=== PATIENT | female | born 1980 | race Caucasian/White ===

== ENCOUNTER → 2021-05-21 08:47 | Outpatient (CLI) | payer BC, SELFPAY ==
--- NOTE | ~2021-05-21 | XR_ITS ---
EXAMINATION: XR_[id number]_CR DATE: 05/21/2021 09:13 INDICATION: Pleurodynia. TECHNIQUE: A frontal view of the chest and 2 views on 3 radiographs of the right ribs were obtained. COMPARISON: None. FINDINGS: The chest demonstrates clear lungs without pneumonia, pleural effusion, or pneumothorax. Th e heart size is normal. There is a fracture of right fifth rib. There is an old healed fracture of ri ght fourth rib. 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 IMPRESSION: 1. Acute fracture of right fifth rib. Reviewed, dictated and finalized at location A.
== END ==
PROVIDERS: PCP Family Medicine Adolescent Medicine; Visit Provider Physician Assistant
DX: S22.31XA Fracture of one rib, right side, initial encounter for closed fracture (principal); X58.XXXA Exposure to other specified factors, initial encounter
CPT/HCPCS: 71101

== ENCOUNTER → 2021-06-25 09:19 | Outpatient (CLI) | payer BC, SELFPAY ==
--- NOTE | ~2021-06-25 | XR_ITS ---
EXAMINATION: XR_[id number]_CR INDICATION: Right-sided rib pain, recent rib fracture TECHNIQUE: A frontal view of the chest and 3 views of the right ribs were obtained. COMPARISON: 05/21/2021 FINDINGS: There is a healing fracture of the right fifth rib. An old healed right fourth rib fracture is noted. There is an old fracture of the distal right clavicle with nonunion. The lungs are free of acute opacities. There is no pleural effusion or pneumothorax. The cardiomediastinal silhouette is n ormal. IMPRESSION: 1. No acute cardiopulmonary abnormality or acute rib fracture identified. 2. Healing fracture of the right fifth rib, healed fracture of the right fourth rib, and right distal clavicle fracture with nonunion. Reviewed, dictated and finalized at location A.
== END ==
PROVIDERS: PCP Physician Assistant; Visit Provider Physician Assistant
DX: S22.31XD Fracture of one rib, right side, subsequent encounter for fracture with routine healing (principal); X58.XXXD Exposure to other specified factors, subsequent encounter
CPT/HCPCS: 71101

== ENCOUNTER 2021-07-02 08:04 | Emergency (ER) | payer BC, SELFPAY ==
--- NOTE | ~2021-07-02 | XR_ITS ---
EXAMINATION: XR ribs RT 2V INDICATION: Right rib pain TECHNIQUE: 3 views of the right ribs were obtained. COMPARISON: 06/25/2021 FINDINGS: There is a healed fracture of the right fourth rib. There is a transverse fracture of the r ight fifth rib. The distal fracture fragment remains inferiorly displaced by approximately one cortic al width. Minimal periosteal reaction has developed. There is also a minimally displaced right sixth rib fracture not seen on the prior examinations. There is an old fracture of the distal right clavicl e with nonunion. The visualized portions of the lungs are clear. There is no right pleural effusion o r pneumothorax. The cardiomediastinal silhouette is normal. IMPRESSION: 1. Healed fracture of the right fourth rib, displaced right fifth rib fracture with minimal interval healing, and minimally displaced right sixth rib fracture not seen on the comparison examinations. 2. 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 Reviewed, dictated and finalized at location A.
[2021-07-02 08:20] VITALS: BP 147/90; PULSE 100; RESP 18; TEMP 36.5; O2SAT 98
[2021-07-02] MEDS: MORPHINE SULFATE (*CRX) 4 MG/ML INJ IV PUSH (09:07)
[2021-07-02 09:08] VITALS: BP 137/93; PULSE 84; RESP 19; O2SAT 97
--- NOTE | 2021-07-02 09:08 | PC.NURSE ---
Administering pain medications to pt. Pt in a shared room and over hears dr tell pt in the next room that they have covid. Pt becomes angry and yells are you fucking kidding me . Dr atkinson comes over to speak with pt and tells her about her rib fractures and pt asking what can we do explains that their is not a lot that can be done for rib fractures and she would just need to take prescribed medications and rest. Pt states So there is nothing we can do, and he has fucking covid! pt then rips mask off of her face. advises pt to put mask back on. Dr atkinson leaves room and pt stating lets go, im ready to go!
--- NOTE | 2021-07-02 09:22 | ED.GENADULT ---
HPI - General Adult General Chief complaint: Unspecified Stated complaint: split rib x 1 month Time Seen by Provider: 07/02/21 08:26 History of Present Illness HPI narrative: Patient is a 40-year-old female who presents ER with chest wall pain. Patient had sudden onset pain at 1:30 AM. She reports she was diagnosed with a broken rib in the last month. She has been trying to heal. Had sudden worsening of pain tonight. Denies trauma. Reports has had some cough no fevers or chills. She is having no difficulty with breathing but pain with breathing so she takes shallower breaths. Reports she was referred here by her primary care office. Patient is holding her right chest wall and attempt to be more comfortable. Related Data Home Medications Medication Instructions Recorded Confirmed melatonin 10 mg tablet 10 mg PO QHS 04/22/21 05/21/21 multivitamin 1 tablet PO DAILY 04/22/21 05/21/21 cyclobenzaprine 10 mg tablet 10 mg PO BID PRN tablet 05/21/21 05/21/21 prednisone 20 mg tablet 40 mg PO . for 5 days tablet 05/21/21 05/21/21 Allergies Allergy/AdvReac Type Severity Reaction Status Date / Time amoxicillin [From Augmentin] AdvReac Severe diarrhea Verified 05/21/21 07:44 clavulanic acid AdvReac Severe diarrhea Verified 05/21/21 07:44 [From Augmentin] Review of Systems Review of Systems: All systems reviewed & are unremarkable except as noted in HPI and below Constitutional: Constitutional: Reports chills and Reports fever(s) Cardiovascular: Cardiovascular: Denies radiating jaw, neck or arm pain and Reports other (Chest wall pain) Respiratory: Respiratory: Reports cough, Denies dyspnea and Reports other (Difficulty taking a deep breath 2/2 pain.) [facility] Past Medical History Medical History delivery delivered x3 Right clavicle fracture Surgical History Surgical History History of partial hysterectomy 2016 (or 2017) Hx of neck surgery 2002 Family History Family History Father Diabetes mellitus Hypertension Heart disease Mother Melanoma Social History Social History Smoking packs per day: 1 Smoking cigarettes per day: 20.0 Years smoked: 15 Smoking pack-years: 15.00 Smoking status: Current every day smoker Tobacco type: cigarettes Second hand tobacco smoke exposure: Yes Alcohol intake: current Alcohol use details: Wine socially Substance use: never Substance use type: does not use Gender identity (if verbalized by the patient): Female Sexual Orientation (if Verbalized by the Patient): Straight or Heterosexual Spiritual care concerns: No Agree to blood products: Yes Exam Narrative: GENERAL: Uncomfortable-appearing, well-nourished, and crying. HEAD: Normocephalic, atraumatic. CHEST: Clear to auscultation. No respiratory distress. Right sided chest wall pain inferior to the breast, no brusing/crepitus HEART: Regular rate and rhythm. Normal peripheral pulses. EXTREMITIES: Normal range of motion. No edema. SKIN: Warm, dry, no rash. NEURO: Alert and oriented x3. PSYCH: Normal mood and affect. Course Course Emergency Course: Patient walked out of the ER after receiving her results. She is very upset that she had an additional rib fracture. She had just received her morphine and her significant other was with her. Boyfriend requested an emergency nerve block, discussed that this is not a procedure performed through the ER. I have contacted the patient's PCP and updated her on the situation. They report that they are planning on doing another outpatient CT and she has a follow-up appointment with cardiothoracic surgery next week. Vital Signs Vital signs: Vital Signs Temperature 97.7 F 07/02/21 08:20 Pulse Rate 100 07/02/21
--- NOTE | 2021-07-02 09:31 | PC.NURSE ---
Real Estate Specialist student notifies this RN that pt walked out. student able to remove pt IV prior to her leaving.
== END 2021-07-02 09:34 | disposition home or self-care (01) ==
PROVIDERS: Emergency Provider Emergency Medicine; PCP Physician Assistant
DX: S22.41XD Multiple fractures of ribs, right side, subsequent encounter for fracture with routine healing (principal); F17.210 Nicotine dependence, cigarettes, uncomplicated; X58.XXXD Exposure to other specified factors, subsequent encounter
CPT/HCPCS: 71100; 96374; 99284; J2270

== ENCOUNTER 2021-07-04 13:26 | Outpatient (CLI) | payer BC, SELFPAY ==
--- NOTE | ~2021-07-04 | CT_ITS ---
EXAMINATION:CT diagnostic chest wo con DATE: 07/04/2021 13:47 INDICATION: Fracture of one rib, right side, initial encounter. Right chest pain. TECHNIQUE: Computed tomography (CT) of the chest was performed without intravenous contrast. Automate d exposure control and iterative reconstruction technique were employed. The dose-length product (DLP ) was 304.95 mGy-cm. COMPARISON: Right rib radiographs 07/02/2021 FINDINGS: There is mild emphysema. There is mild atelectasis bilaterally. No pleural effusion. The he art size is normal. There are coronary artery calcifications. No pericardial effusion. There is a 2 m m stone in right kidney. There is a 2 mm stone in left kidney. There is an old fracture deformity of distal right clavicle. There is a healing fracture of right fifth rib with callus formation. There is an acute fracture right sixth rib. There is an old healed fracture of right fourth rib. IMPRESSION: 1. Acute fracture of right sixth rib. 2. Healing subacute fracture of right fifth rib. 3. Mild emphysema. Reviewed, dictated and finalized at location A.
== END 2021-07-04 13:27 ==
PROVIDERS: PCP Physician Assistant; Visit Provider Physician Assistant
DX: J43.9 Emphysema, unspecified (principal); S22.41XD Multiple fractures of ribs, right side, subsequent encounter for fracture with routine healing; X58.XXXD Exposure to other specified factors, subsequent encounter
CPT/HCPCS: 71250

== ENCOUNTER → 2023-02-24 12:06 | Outpatient (CLI) | payer BC, SELFPAY ==
--- NOTE | ~2023-02-24 | XR_ITS ---
XR chest 2V DATE: 02/24/2023 12:53 INDICATION: Cough. Left anterior chest wall pain. TECHNIQUE: 2 views COMPARISON: 07/04/2021 CT chest FINDINGS: Minimal residual deformity is evident from prior lateral right fifth and sixth rib fracture s noted on 07/04/2021 CT thorax examination. Normal heart size. No hilar or mediastinal enlargement. No pulmonary infiltrate or consolidation, ple ural effusion or pulmonary vascular congestion or pneumothorax is detected. IMPRESSION: No active cardiopulmonary disease Reviewed, dictated and finalized at location L. [facility]
--- NOTE | ~2023-02-24 | XR_ITS ---
XR ribs LT 2V DATE: 02/24/2023 12:53 INDICATION: Cough. Left anterior chest wall pain. TECHNIQUE: 3 views of left ribs COMPARISON: None FINDINGS: No left rib fracture or bone destruction is detected. The left lung is clear. No pleural effusion or pulmonary vascular congestion or pneumothorax is noted on the left. Normal heart size. IMPRESSION: Negative left ribs Reviewed, dictated and finalized at location L. [employer] IMPRESSION: Negative left ribs
== END ==
PROVIDERS: PCP Family Medicine Adolescent Medicine; Visit Provider Family Medicine Adolescent Medicine
DX: R05.9 Cough, unspecified (principal); R07.89 Other chest pain
CPT/HCPCS: 71046; 71100

== ENCOUNTER 2023-03-25 08:35 | Day surgery (SDC) | payer OTHER, SELFPAY ==
[2023-03-09 12:14] VITALS: BMI 23.8
[2023-03-25] VITALS (8 sets, daily range): BP systolic 102–163; BP diastolic 65–93; PULSE 62–77; RESP 14–24; TEMP 36.3–36.9; O2SAT 97–100; BMI 24.7
[2023-03-25] MEDS: LACTATED RINGERS 1,000 ML 30 ML IV CONT ×2 (09:21→11:46)
--- NOTE | 2023-03-25 10:06 | SUR.PREOP ---
FEMALE RN IN ROOM WHILE DR BARROS MARKED PT. SPOUSE AT BEDSIDE
--- NOTE | 2023-03-25 10:10 | P.OP_ITS ---
Procedure Note - Detailed Date of Procedure 03/25/23 Pre-op Diagnosis Micromastia Post-op Diagnosis Same Procedure Performed Bilateral augmentation mammaplasty Surgeon Clark Hastings MD Anesthesia General Findings Bilateral Garland Banegas SoftTouch 520 cc Right - REF# [id number] SN [id number] Dual plane 2 Left - REF# [id number] SN [id number] Dual plane 2 Description of Procedure She is here today for bilateral breast augmentation. Previously and again today the risks, benefits, alternatives were discussed in extensive detail. I wanted her to be very realistic about the risks involved as well as expectations. We discussed aftercare and what to monitor for. Made sure answered all of her questions to her satisfaction today and consent was obtained. Marked in the preoperative holding area with their verification. The patient was taken to the operating room placed supine on the operating table. Anesthesia was provided by anesthesiology. A surgical time-out was taken. We cleansed the skin and 1% lidocaine and 0.25% Marcaine with epinephrine was used anesthetize as a field block. She was prepped and draped in a standard sterile fashion. Tegaderm nipple Liu were placed. A 15 blade used to make an incision along the inframammary fold. Dissection was continued at 45 degree angle until the chest wall as identified. I incised the pectoralis major along its inferior border and completely released the inferior border leaving the medial border intact. I created a subpectoral pocket in the appropriate dimensions based on our preoperative planning for the implant. I then copiously irrigated with saline solution and verified a strict hemosta sis. Next the use a triple antibiotic and Betadine containing solution to irrigate the pocket. I washed my gloves with the triple antibiotic and Betadine solution. We washed the implant immediately upon opening it with this solution and only opened it when we needed it. I used implant funnel and no-touch technique. The implant was introduced into the pocket using the funnel. Having verified p ositioning of the implant this was closed using 2-0 PDS followed by 3-0 Monocryl in a running subcuticular 4-0 Monocryl followed by tissue glue. Fluffs and surgical bra were placed. Patient was awoke and taken to PACU without difficulty. All instrument sponge counts were correct at the end of the case. Estimated Blood Loss 25 Drains No Packing No Pathology None sent Complications No immediate complications Condition Stable Disposition PACU
--- NOTE | 2023-03-25 10:10 | WPDHPUPDATE1 ---
History and Physical Update Update Date/Time: 03/25/23 10:10 History and Physical has been reviewed, including an updated exam of the patient. There are NO changes in the patient's condition. Risks, benefits, and alternatives have been discussed and questions answered. Patient agrees to proceed with procedure.
[2023-03-25] MEDS: TRANEXAMIC ACID 1,000 MG/10 ML AMPUL 1000 MG IV PUSH (10:31)
[2023-03-25] MEDS: ceFAZolin SODIUM 2 GM/20 ML SW SYRINGE IV PUSH (10:32)
[2023-03-25] MEDS: LIDO 1%/EPINEPHRINE 1:100,000 20 ML VIAL 30 ML INFILTRATE (10:43)
[2023-03-25] MEDS: NACL 0.9% IRRIG POUR BOTTLE 900 ML, GENTAMICIN SULFATE INJ 160 MG, ceFAZolin 2 GM, POVI... IRRIGATION (11:03)
[2023-03-25] MEDS: HYDROmorphone HCL INJ (*CRX) 1 MG/ML SYR 0.5 MG IV PUSH ×4 (12:03→12:32)
--- NOTE | 2023-03-25 12:13 | SUR.PHASEI ---
PT RESTING QUIETLY NOW, AWAKENS EASILY. NO LONGER MOANING OR GRIMACING IN PAIN. RESP EVEN UNLABORED. PT P,W,Felipe.
--- NOTE | 2023-03-25 12:35 | SUR.PHASEI ---
PT AWAKE, EATING ICE CHIPS. STATES PAIN 5-6/10. PT STATES READY TO SEE SPOUSE.
[2023-03-25] MEDS: oxyCODONE HCL (*CRX) 5 MG TAB IR PO (12:49)
--- NOTE | 2023-03-25 13:39 | SUR.PHASEII ---
1240; UPON ARRIVAL TO [facility], SPOUSE IN ROOM. PT STATES SHE IS READY TO GO HOME. 1255; PT EATING AND DRINKING. TALKATIVE. ASKING AGAIN TO GO HOME. SPOUSE REMAINS AT BEDSIDE.
--- NOTE | 2023-04-06 07:25 | WPDANESPN ---
Anes - Prog Note Post-Op Date/Time: 04/06/23 07:25 Cardiovascular status: normal Respiratory status: normal Airway patency: baseline Mental status: baseline Post-Op hydration status: normal Vital Signs: Last Vital Signs Temp 36.4 C 03/25/23 11:55 Pulse 70 03/25/23 13:00 Resp 16 03/25/23 13:00 BP 156/84 H 03/25/23 13:00 Pulse Ox 100 03/25/23 13:00 O2 Del Method Room Air 03/25/23 13:00 O2 Flow Rate 6 03/25/23 12:10 Pain Score (VAS): 2 Patient Feedback: Patient satisfied with anesthetic care. Other Findings: late entry
--- NOTE | 2023-04-16 07:31 | WPDANESEPPF ---
Anes - Initial Pre Proc Eval Procedure: Operation Date: 03/25/23 10:45 Proposed Procedures p Bilateral Breast Augmentation Mammoplasty - Clark Hastings MD Date/Time: 04/16/23 07:31 Surgeon: Clark Hastings MD Pre Op Diagnosis: Micromastia Patient Data Age: 42 Gender: F Height: 1.63 m Weight: 65.5 kg Last Vital Signs Temp 36.4 C 03/25/23 11:55 Pulse 70 03/25/23 13:00 Resp 16 03/25/23 13:00 BP 156/84 H 03/25/23 13:00 Pulse Ox 100 03/25/23 13:00 O2 Del Method Room Air 03/25/23 13:00 O2 Flow Rate 6 03/25/23 12:10 Allergies Allergy/AdvReac Type Severity Reaction Status Date / Time No Known Allergies Allergy Verified 03/25/23 08:51 Home Medications Medication Instructions Recorded Confirmed Type alprazolam 1 mg tablet 1 mg PO QHS PRN anxiety #30 tabs 12/30/22 03/25/23 Rx escitalopram oxalate 10 mg tablet 10 mg PO DAILY #30 tabs 12/30/22 03/25/23 Rx lisinopril 40 mg tablet 40 mg PO DAILY #30 tabs 12/30/22 03/25/23 Rx albuterol sulfate 90 mcg/actuation 2 inh inhalation Q4H PRN shortness 02/10/23 03/25/23 Rx aerosol inhaler of breath or wheezing #8.5 grams hydrochlorothiazide 25 mg tablet 25 mg PO DAILY #30 tabs 04/06/23 Rx polyethylene glycol 3350 17 17 g PO DAILY #238 grams 04/06/23 Rx gram/dose oral powder (Miralax) Patient hx anesthesia problems: none Family hx anesthesia problems: none Results Review: All pre-operative results and documents have been reviewed as part of the pre-operative evaluation. [facility] Past Medical History Medical History delivery delivered x3 Cutaneous abscess of groin Right clavicle fracture Right rib fracture Surgical History Surgical History History of partial hysterectomy 2015 (or 2017) Hx of neck surgery 2002 Family History Family History Father Diabetes mellitus Hypertension Heart disease Mother Melanoma Social History Social History Smoking packs per day: 1 Smoking cigarettes per day: 20.0 Years smoked: 15 Smoking pack-years: 15.00 Smoking status: Current every day smoker Tobacco type: cigarettes Second hand tobacco smoke exposure: Yes Alcohol intake: current Alcohol use details: Wine socially Substance use: never Substance use type: does not use Living arrangements: with family Occupation/Education: occupation Gender identity (if verbalized by the patient): Female Sexual Orientation (if Verbalized by the Patient): Straight or Heterosexual Spiritual care concerns: No Agree to blood products: Yes Comments late entry Anes - Eval Final PreProcedure Day of Procedure 04/16/23 07:31 Patient weight: normal Heart: regular rate and rhythm Lungs: clear to auscultation Airway: Mallampati scale class II Neurological: alert and oriented Last oral intake: >/= 8 hours ASA classification: II Emergent: no Anesthetic plan: proceed Anesthesia type and monitoring: general Results Review: All pre-operative results and documents have been reviewed as part of the pre-operative evaluation. Informed Consent: The patient's anesthetic plan and its attendant risks and benefits were discussed with the patient/family/POA. Questions were solicited and answers provided to the satisfaction of the patient/family/POA.
== END 2023-03-25 13:15 | disposition home or self-care (01) ==
PROVIDERS: Visit Provider Surgery Plastic and Reconstructive Surgery
PROC: (CPT 19325; principal; 2023-03-25 10:45)
DX: N64.82 Hypoplasia of breast (principal); Z41.1 Encounter for cosmetic surgery
CPT/HCPCS: 19325

== ENCOUNTER 2024-11-08 07:33 | Outpatient (CLI) | payer BC, SELFPAY ==
--- NOTE | ~2024-11-08 | XR_ITS ---
EXAMINATION: XR chest 2V, 11/08/2024 7:36 CDT HISTORY: J45.30 - Mild persistent asthma, uncomplicated COMPARISON: No comparisons available. Technique: 2 views obtained. Findings: The lungs are clear, no effusion. No pneumothorax. Heart is normal size. Mediastinal and hilar contours are within normal limits. Bony thorax no acute abnormality. Impression: No acute cardiopulmonary abnormality. Reviewed, dictated and finalized at location A. Impression: No acute cardiopulmonary abnormality.
== END 2024-11-08 07:34 | disposition home or self-care (01) ==
LOC: MICIMG 07:34
PROVIDERS: PCP Nurse Practitioner Family; Visit Provider Nurse Practitioner Family
DX: J45.30 Mild persistent asthma, uncomplicated (principal)
CPT/HCPCS: 71046

== ENCOUNTER 2024-12-02 09:40 | Outpatient (CLI) | payer BC, SELFPAY ==
--- OUTSIDE RECORDS SUMMARY | 2024-12-02 10:11 | XMS_ITS | Clinical Summary ---
Author Organization [facility] Address [address] [place] [address] Care Team Providers Care Family Support Worker Name Role Phone Darrius Hong MD Primary Care Provider [phone] Gabriele Granados MD Unavailable [phone] Allergies No known active allergies Medications hydrocodone-acet aminophen 5-325 MG tabletIndication s:Acute Pain < 3 Day Supply Take 1 tablet by mouth every 6 (six) hours as needed. Indications : Acute Pain < 3 Day Supply 10 tablet 04/04/2019 Active Social History Tobacco Use Types Packs/Day Years Used Date Smoking Tobacco: Never Smokeless Tobacco: Never Alcohol Use Standard Drinks/Week Comments Never 0 (1 standard drink = 0.6 oz pur e alcohol) AUDIT-C Answer Date Recorded Frequency of Alcohol Consumption Never 04/04/2019 Average Number of Drinks Not on file 020 Frequency of Binge Drinking Not on file 03/19 Comments No Sex and Gender Information Value Date Recorded Sex Assigned at Not on file Legal Sex Female 5:54 AM CLIENT RENEWAL SPECIALIST Gender Identity Not on file Sexual Orientation Not on file Last Filed Vital Signs Vital Sign Reading Time Taken Comments Blood Pressure 158/98 04/04/2019 7:45 AM CLIENT RENEWAL SPECIALIST Pulse 80 04/04/2019 7:44 AM CLIENT RENEWAL SPECIALIST Temperature 36.2 C (97.2 F) 04/04/2019 6:09 AM CLIENT RENEWAL SPECIALIST Respiratory Rate 20 04/04/2019 7:44 AM CLIENT RENEWAL SPECIALIST Oxygen Saturation 99% 04/04/2019 6:09 AM CLIENT RENEWAL SPECIALIST Inhaled Oxygen Concentration - - Weight 74 kg (163 lb 2.3 oz) 04/04/2019 6:09 AM CLIENT RENEWAL SPECIALIST Height 167.6 cm (5' 6) 04/04/2019 6:09 AM CLIENT RENEWAL SPECIALIST Body Mass Index 26.33 04/04/2019 6:09 AM CLIENT RENEWAL SPECIALIST Plan of Treatment Health Maintenance Due Date Last Done Comments Cervical Cancer Screening Pa p Smear (Age 30 to 64) Every 3 Years 1981 Annual Physical 1984 Hepatitis C 08/04/1999 DTaP, Tdap and Td Vaccines ( 1 - Tdap) 2000 Hepatitis B Vaccines (1 of 3 - 19+ 3-dose series) 2000 HPV Vaccines (1 - 3-dose SCD M series) 2008 Cervical Cancer Screening Pa p with HPV Testing (Age 30 to 64) Every 5 Years 08/04/2011 Cervical Cancer Screening with HPV 08/04/2011 Mammogram Screening 2021 COVID-19 Vaccine (2023-2 5 season) 2024 Influenza Adult (#1) 2024 11/30/2014 Hepatitis A Vaccines Aged Out 10/24/2010 No long er eligible based on patient's age to complete this topic Meningococcal B Vaccine Aged Out No l onger eligible based on patient's age to complete this topic Meningococcal Vaccine Aged Out No crystal rebel eligible based on patient's age to complete this topic Pneumococcal Vaccine: Pediat rics (0 to 5 Years) and At-Risk Patients (6 to 49 Years) Aged Out No longer eligi ble based on patient's age to complete this topic RSV Immunizations Under 20 Months Aged Out No longer eligible based on patient's age to complete this topic Insurance [facility] Care Teams Family Support Worker Relationship Specialty Start Date End Date Darrius Hong MD [address] [address] PCP - General FAMILY PRACTICE 11/16/21 Gabriele Granados MD [address] [place] [address] FAMILY PRACTICE 11/16/21
--- OUTSIDE RECORDS SUMMARY | 2024-12-02 10:11 | XMS_ITS | Clinical Summary ---
Author Organization [facility] Address [address] [place] [address] Care Team Providers Care E Learning Designer Name Role Phone Darrius Hong MD Primary Care Prov ider Allergies No known active allergies Medications fluticasone propion-salmete roL (ADVAIR DISKUS) 250-50 mcg/dose diskus inhaler Inhale 1 puff 2 (two) times a day Rinse mouth with water after use. Do not swallow. Active albuterol HFA (PROVENTIL HFA,VENTOLIN HFA,PROAIR HFA) 90 mcg/actuation inhaler Inhale 2 puffs every 6 (six) hours as needed for wheezing Active estradioL (ESTRACE) 1 mg tablet Take 1 mg by mouth daily 2 Active cyclobenzaprine (FLEXERIL) 10 mg tablet Take 1 tablet (10 mg total) by mouth 2 (two) times a day as needed for muscle spasms 20 tablet 2 Active Additional Information Patient not taking.Reported on 11/01/2021 ketorolac (TORADOL) 10 mg tablet Take 1 tablet (10 mg total) by mouth every 6 (six) hours as needed for pain 20 tablet 2 Active Additional Information Patient not taking.Reported on 11/01/2021 lidocaine (LIDODERM) 5 % Place 1 patch on the skin daily Remove & discard patch within 12 hours or as directed by MD. 30 patch 2 Active cloNIDine (CATAPRES) 0.2 mg tablet Take 0.2 mg by mouth 2 (two) times a day Active cloNIDine (CATAPRES) 0.1 mg tablet Take 0.1 mg by mouth 2 (two) times a day Active rosuvastatin (CRESTOR) 20 mg tablet Take 1 tablet (20 mg total) by mouth daily 30 tablet 11 2 Active aspirin 81 mg enteric coated tablet Take 1 tablet (81 mg total) by mouth daily 30 tablet 11 2 Active lisinopriL (PRINIVIL,ZESTR IL) 20 mg tablet Take 1 tablet (20 mg total) by mouth daily 90 tablet 3 2 Active metoclopramide (REGLAN) 10 mg tablet Take 1 tablet (10 mg total) by mouth every 6 (six) hours 30 tablet 3 Active Active Problems Problem Noted Date Diagnosed Date Precordial pain 11/01/2021 Dyspnea on exertion 11/01/2021 Palpitations 11/01/2021 Coronary artery calcification 11/01/2021 Tobacco abuse 11/01/2021 Essential hypertension 11/01/2021 Surgical History Surgery Date Site/Laterality Comments SECTION, CLASSIC CLAVICLE SURGERY CERVICAL DISC SURGERY Medical History Medical History Date Comments Asthma Hypertension GERD (gastroesophageal reflux disease) Family History Medical History Relation Name Comments CABG Father Diabetes Father Heart attack Father ICD Father Relation Name Status Comments Father Alive Social History Tobacco Use Types Packs/Day Years Used Date Smoking Tobacco: Every Day Cigarettes 2 29.8 Started: 1995 Tobacco Cessation:Ready to Q uit: Not Asked; Counseling Given: Not Answered Personal Safety Answer Date Recorded Getting School Help Needed Not on file 10/23 Comments No Sex and Gender Information Value Date Recorded Sex Assigned at Not on file Legal Sex Female 3:14 AM TRUCK CRANE OPERATOR HELPER Gender Identity Not on file Sexual Orientation Not on file Obstetrics History Last Filed Vital Signs Vital Sign Reading Time Taken Comments Blood Pressure 114/69 10/19/2022 8:00 PM CDT Pulse 116 10/19/2022 8:00 PM CDT Temperature 36.6 C (97.9 F) 10/19/2022 7:46 PM CDT Respiratory Rate 20 10/19/2022 8:00 PM CDT Oxygen Saturation 93% 10/19/2022 7:46 PM CDT Inhaled Oxygen Concentration - - Weight 63.5 kg (140 lb) 10/19/2022 7:46 PM CDT Height 165.1 cm (5' 5) 10/19/2022 7:46 PM CDT Body Mass Index 23.3 10/19/2022 7:46 PM CDT Plan of Treatment Health Maintenance Due Date Last Done Comments Cervical Cancer Screening 1981 Depression Screening 1981 Hepatitis C Screening 1981 DTaP/Tdap/Td Vaccine (1 - Tdap) 1992 Varicella Vaccines (1 of 2 - 13+ 2-dose series) 1994 Hepatitis B Screening 08/04/1999 Regular Well Visit/Exam 18-64 08/04/1999 Pneumococcal vaccine <65 (1 of 2 - PCV) 2000 HPV Vaccines (1 - 3-dose SCDM series) 2008 Breast Cancer Screening-Mammogram 12/26/2023 023 Influenza Vaccine (#1) 2024 11/30/2014 Procedures Procedure Name Priority Date/Time Associated Diagnosis Comments SCREENING MAMMOGRAM BILATERAL W PANCHO Schedule Routine, Read Routine (OP Routine) 12/25/2022 9:57 AM TRUCK CRANE OPERATOR HELPER Screening mammogram, encounter for from Last 3 Months or Most Recently Relevant to Health Maintenance Results * (ABNORMAL) Screening Mammogram Bilateral W Pancho (12/25/2022 9:57 AM TRUCK CRANE OPERATOR HELPER) Anatomical Region Laterality Modality Breast Bilateral Mammography Narrative 12/25/2022 12:50 PM TRUCK CRANE OPERATOR HELPER Examination: Screening Mammogram Bilateral W Pancho: 12/25/22 Clinical: Screening mammogram, encounter for. Prior Study Comparisons: None. This is a baseline study. Findings: Screening Mammogram Bilateral W Pancho Right 1) Lymph Node: There is a lymph node seen in the right axilla that may be enlarged and calcified. 2) Asymmetry: There is an asymmetry seen in the upper region of the right breast on the MLO view. Left No significant masses, malignant type calcifications, skin thickening, nipple retraction, or significant lymphadenopathy is noted in this breast. The CAD review showed no significant findings. The breasts have scattered areas of fibroglandular density. The patient will be notified of results by letter. Impression: BI-RADS ATLAS category (overall): 0 - Incomplete: Needs Additional Imaging Evaluation Overall Assessment: 0 - Incomplete: Needs Additional Imaging Evaluation us Self Screening Mammogram IMG MAMMO PROCEDURES Fi nal Result from Last 3 Months or Most Recently Relevant to Health Maintenance Insurance [employer] ACCESS CHOICE [employer] ACCESS CHOICE [employer] ACCESS CHOICE Care Teams E Learning Designer Relationship Specialty Start Date End Date Darrius Hong MD PCP - General Family Medicine 12/12/22
[2024-12-02 10:12] LABS: Hematocrit 44.4 % (37.0-47.0); Hemoglobin 14.8 g/dL (12.0-15.0); Immature Granulocyte Percent A 1.1 % (0-0.5); Lymphocytes Absolute Auto 5.28 K/mm3 (0.9-3.2); Mean Corpuscular HGB Conc 33.3 g/dl (32-36); Mean Corpuscular Hemoglobin 31.0 pg (26-34); Mean Corpuscular Volume 93.1 fl (80-100); Nucleated Red Blood Cells Absolute Auto 0.000 K/mm3 (0.0-0.012); Nucleated Red Blood Cells Perc 0.0 % (0.0-0.2); Platelet Count Result 442 k/mm3 (150-375); Red Blood Count 4.77 M/mm3 (4.2-5.4); White Blood Count 17.5 K/mm3 (4.5-10.0)
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
[2024-12-02 10:38] LABS: Alanine Aminotransferase 19 U/L (6-35); Albumin Level 4.0 g/dL (3.5-5.1); Alkaline Phosphatase 70 U/L (38-126); Anion Gap 3 mmol/L (4-12); Aspartate Amino Transferase 25 U/L (14-36); Bilirubin,Total 0.2 mg/dL (0.2-1.3); Blood Urea Nitrogen 11 mg/dL (7-17); Calcium 8.9 mg/dL (8.4-10.2); Carbon Dioxide 28 mmol/L (22-30); Chloride 103 mmol/L (98-107); Estimated Glomerular Filt Rate > 60; Glucose 90 mg/dL (65-110); Potassium 3.9 mmol/L (3.4-5.0); Sodium 134 mmol/L (137-145); Total Protein 6.7 g/dL (6.3-8.2)
[2024-12-02 10:51] LABS: Schistocytes None Seen
== END 2024-12-02 09:41 | disposition home or self-care (01) ==
LOC: ANHLAB 09:41
PROVIDERS: PCP Nurse Practitioner Family; Visit Provider Nurse Practitioner Family
DX: J02.9 Acute pharyngitis, unspecified (principal); D72.828 Other elevated white blood cell count
CPT/HCPCS: 36415; 80053; 85025

== ENCOUNTER 2024-12-02 11:31 | Emergency (ER) | payer BC, SELFPAY ==
[2024-12-02] VITALS (13 sets, daily range): BP systolic 122–156; BP diastolic 71–99; PULSE 68–84; RESP 17–20; TEMP 36.6; O2SAT 94–100
--- NOTE | ~2024-12-02 | CT_ITS ---
EXAMINATION: CT soft tissue neck w con DATE: 12/02/2024 15:18 INDICATION: Vocal cord mass TECHNIQUE: Computed tomography (CT) of the neck was performed with 75 mL Omnipaque-350 intravenous contrast. Automated exposure control and iterative reconstruction technique were employed. The dose-length product was 544.16 mGy-cm. COMPARISON: None FINDINGS: Orbits are normal. The paranasal sinuses are clear. Mastoid air cells and middle ear cavities are clear. Submandibular and parotid glands are normal and symmetric. Thyroid gland is unremarkable. There are scattered normal-sized lymph nodes in the neck, no lymphadenopathy. The epiglottis, vocal cords and aryepiglottic folds appear normal and symmetric. No masses identified. The vasculature is patent and normal in caliber. Airway is unremarkable. Superior mediastinum is unremarkable. Mild emphysema in the visualized upper lungs. Moderate cervical spondylosis. IMPRESSION: 1. No abnormal masses or pathologically enlarged lymphadenopathy in neck or visualized portions of the head and upper chest. Specifically the epiglottis, vocal cords and intervening aryepiglottic folds appear normal and symmetric. 2. Mild emphysema. Reviewed, dictated and finalized at location A. IMPRESSION: 1. No abnormal masses or pathologically enlarged lymphadenopathy in neck or vis ualized portions of the head and upper chest. Specifically the epiglottis, voca l cords and intervening aryepiglottic folds appear normal and symmetric. 2. Mild emphysema.
--- OUTSIDE RECORDS SUMMARY | 2024-12-02 12:20 | XMS_ITS | Clinical Summary ---
Author Organization [facility] Address [address] [place] [address] Care Team Providers Care Stave Grader Name Role Phone Darrius Hong MD Primary Care Provider [phone] Gabriele Granados MD Unavailable [phone] Allergies No known active allergies Medications hydrocodone-acet [...] on file Legal Sex Female 5:54 AM MEDICAL COLLECTIONS REPRESENTATIVE Gender Identity Not on file Sexual Orientation Not on file Last Filed Vital Signs Vital Sign Reading Time Taken Comments Blood Pressure 158/98 04/04/2019 7:45 AM MEDICAL COLLECTIONS REPRESENTATIVE Pulse 80 04/04/2019 7:44 AM MEDICAL COLLECTIONS REPRESENTATIVE Temperature 36.2 C (97.2 F) 04/04/2019 6:09 AM MEDICAL COLLECTIONS REPRESENTATIVE Respiratory Rate 20 04/04/2019 7:44 AM MEDICAL COLLECTIONS REPRESENTATIVE Oxygen Saturation 99% 04/04/2019 6:09 AM MEDICAL COLLECTIONS REPRESENTATIVE Inhaled Oxygen Concentration - - Weight 74 kg (163 lb 2.3 oz) 04/04/2019 6:09 AM MEDICAL COLLECTIONS REPRESENTATIVE Height 167.6 cm (5' 6) 04/04/2019 6:09 AM MEDICAL COLLECTIONS REPRESENTATIVE Body Mass Index 26.33 04/04/2019 6:09 AM MEDICAL COLLECTIONS REPRESENTATIVE Plan of Treatment Health Maintenance Due Date [...] patient's age to complete this topic Insurance [facility] Care Teams Stave Grader Relationship Specialty Start Date End Date Darrius Hong MD [address] [address] PCP - General FAMILY PRACTICE 11/16/21 Gabriele Granados MD [address] [place] [address] FAMILY PRACTICE 11/16/21
--- OUTSIDE RECORDS SUMMARY | 2024-12-02 12:20 | XMS_ITS | Clinical Summary ---
Author Organization [facility] [employer] Address [address] [place] [address] Care Team Providers Care Police Communications Dispatcher Name Role Phone Bryan Schrader MD Unavailable [phone] Darrius Hong MD Primary Care Provider + Source Comments [facility] [employer],non-owned Affiliates and Associated Physician Practices is amultiple site organization consisting of ambulatory clinics and hospital sitesin [place], [place], [place] and [place]. This disclosure is being madepursuant to the Care Everywhere program and may not contain all information available regarding this patient. Last updated 17.[facility] [employer] [facility] Allergies No known active allergies Medications * [...] AM CDT Legal Sex Female 4:32 AM MIXING AND MOLDING MACHINE OPERATOR Gender Identity Female 09/10/2023 10:15 AM CDT Sexual Orientation Straight 09/10/2023 10 :15 AM CDT Last Filed Vital Signs Vital Sign Reading Time Taken Comments Blood Pressure 134/64 12/22/2022 9:54 AM MIXING AND MOLDING MACHINE OPERATOR Pulse 73 03/21/2022 6:30 AM MIXING AND MOLDING MACHINE OPERATOR Temperature 36.4 C (97.6 F) 03/21/2022 9:37 AM MIXING AND MOLDING MACHINE OPERATOR Respiratory Rate 16 03/21/2022 9:37 AM MIXING AND MOLDING MACHINE OPERATOR Oxygen Saturation 100% 03/21/2022 9:37 AM MIXING AND MOLDING MACHINE OPERATOR Inhaled Oxygen Concentration - - Weight 69.9 kg (154 lb) 12/22/2022 9:54 AM MIXING AND MOLDING MACHINE OPERATOR Height 165.1 cm (5' 5) 12/22/2022 9:54 AM MIXING AND MOLDING MACHINE OPERATOR Body Mass Index 25.63 12/22/2022 9:54 AM MIXING AND MOLDING MACHINE OPERATOR Plan of Treatment Health Maintenance Due Date [...] tobacco Lifestyle Not on track(01/09/20 10:29 AM MIXING AND MOLDING MACHINE OPERATOR) No Katerina Garcias MA Procedures Procedure Name Priority Date/Time Associated Diagnosis Comments MAMMOGRAM 02/02/2023 COMPREHENSIVE METABOLIC PANEL STAT 03/15/2022 9:14 AM MIXING AND MOLDING MACHINE OPERATOR LIPID PROFILE AM Draw 08/20/2018 5:19 AM CDT from Last 3 Months or Most Recently Relevant to Health Maintenance Results * MAMMOGRAM (02/02/2023) Anatomical Region Laterality Modality Other 02/02/2023 Narrative 02/02/2023 Ordered by an unspecified provider. us Scanned Document SCANNING ONLY Final Result * (ABNORMAL) COMPREHENSIVE METABOLIC PANEL (03/15/2022 9:14 AM MIXING AND MOLDING MACHINE OPERATOR) Glucose 98 70 - 105 mg/dL 03/15/2022 9:54 AM MIXING AND MOLDING MACHINE OPERATOR [facility] Sodium 134(L) 136 - 145 mmol/L 03/15/2022 9:54 AM MIXING AND MOLDING MACHINE OPERATOR [facility] Potassium 4.4 3.5 - 5.1 mmol/L 03/15/2022 9:54 AM [facility] Chloride 102 98 - 107 mmol/L 03/15/2022 9:54 AM [facility] CO2 22(L) 23 - 31 mmol/L 03/15/2022 9:54 AM [facility] Calcium 9.4 8.4 - 10.4 mg/dL 03/15/2022 9:54 AM [facility] Anion Gap 10 8 - 18 mmol/L 03/15/2022 9:54 AM [facility] BUN 11 7 - 18.7 mg/dL 03/15/2022 9:54 AM [facility] Creatinine 0.78 0.57 - 1.11 mg/dL 03/15/2022 9:54 AM [facility] Alkaline Phosphatase 73 40 - 150 U/L 03/15/2022 9:54 AM [facility] ALT 51 0 - 61 U/L 03/15/2022 9:54 AM [facility] AST 24 5 - 34 U/L 03/15/2022 9:54 AM [facility] Protein Total 7.3 6.4 - 8.3 gm/dL 03/15/2022 9:54 AM [facility] Albumin 4.2 3.5 - 5.2 gm/dL 03/15/2022 9:54 AM [facility] Bilirubin Total 0.4 0.2 - 1.2 mg/dL 03/15/2022 9:54 AM [facility] eGFR by CKD-EPI >90 >=90 mL/min/1.7 3 m2 03/15/2022 9:54 AM [facility] Blood BLOOD SPECIMEN / Unknown Venipuncture / Unknown 03/15/2022 9:14 AM MIXING AND MOLDING MACHINE OPERATOR 03/15/2022 9:32 AM [facility] us Paulina Mustafa MD LAB - CHEMISTRY ORDERABLES Sushma andersen Result [facility] [address] [place] [address] * LIPID PROFILE (08/20/2018 5:19 AM CDT) Cholesterol 153 <200 mg/dL 08/20/2018 6:06 AM CDT [facility] Triglycerides 128 <150 mg/dL 08/20/2018 6:06 AM CDT [facility] HDL Cholesterol 75 >40 mg/dL 9 6:06 AM CDT [facility] LDL Calculated 52 <130 mg/dL 08/20/2018 6:06 AM CDT [facility] VLDL Calculated 26 <=30 mg/dL 9 6:06 AM CDT [facility] Chol HDL Ratio 2.0 <4.5 08/20/2018 6:06 AM CDT [facility] LDL/HDL Ratio 0.7 <5.0 08/20/2018 6:06 AM CDT [facility] Blood BLOOD SPECIMEN / Unknown Venipuncture / Unknown 08/20/2018 5:19 AM CDT 08/20/2018 5:33 AM CDT Yeni Harrison CELLOPHANE BATH MIXER-PINMAKER LAB - CHEMISTRY ORDERAB LES Final Result Performing Organization Address City/State/[facility] Co de Phone Number [facility] [address] [place] [address] from Last 3 Months or Most Recently Relevant to Health Maintenance Insurance ANTH [facility] Advance Directives * Full Code (Latest Code Status on File) Date Activated Date Inactivated Comments 08/19/2018 10:45 AM 08/21/2018 3:28 PM * Full Code Date Activated Date Inactivated Comments 06/11/2016 2:44 PM 06/12/2016 2:59 PM * Full Code Date Activated Date Inactivated Comments 06/11/2016 9:02 AM 06/11/2016 2:44 PM Care Teams Police Communications Dispatcher Relationship Specialty Start Date End Date Darrius Hong MD [address] [place] [address] PCP - General Family Medicine 03/21/22 Bryan Schrader MD [address] [facility] [address] [address] [place] [id number] Equipment Cleaner Obstetrics and Gynecology 12/04/15
--- OUTSIDE RECORDS SUMMARY | 2024-12-02 12:20 | XMS_ITS | Clinical Summary ---
Author Organization [facility] Address [address] [place] [address] Care Team Providers Care Lining Stitcher Name Role Phone Darrius Hong MD Primary [...] on file Legal Sex Female 3:14 AM VIDEO GAME REPAIR TECHNICIAN Gender Identity Not on file Sexual Orientation [...] Read Routine (OP Routine) 12/25/2022 9:57 AM VIDEO GAME REPAIR TECHNICIAN Screening mammogram, encounter for from Last 3 Months or Most Recently Relevant to Health Maintenance Results * (ABNORMAL) Screening Mammogram Bilateral W Pancho (12/25/2022 9:57 AM VIDEO GAME REPAIR TECHNICIAN) Anatomical Region Laterality Modality Breast Bilateral Mammography Narrative 12/25/2022 12:50 PM VIDEO GAME REPAIR TECHNICIAN Examination: Screening Mammogram Bilateral W Pancho: 12/25/22 [...] Most Recently Relevant to Health Maintenance Insurance [employer] ACCESS CHO[employer] Member Subscriber Plan / Payer (Ef fective 2019-Present) Name:Ortiz Disla Relation to Subscriber:Self Name:Ortiz Disla Payer ID:[id number] (NAIC) Type:LTG Exam Prep Platform Address: [place] [address] [employer] Member Subscriber Plan / Payer (Ef fective 2019-Present) Name:Ortiz Disla Relation to Subscriber:Self Name:Ortiz Disla Payer ID:[id number] (NAIC) Type:LTG Exam Prep Platform Address: [place] [address] [employer] ACCESS CHOICE Care Teams Lining Stitcher Relationship Specialty Start Date End Date Darrius Hong MD PCP - General Family Medicine 12/12/22
--- NOTE | 2024-12-02 13:23 | ED.GENADULT ---
HPI - General Adult General Chief complaint: Recheck/Abnormal Lab/Rx Stated complaint: high wbc Time Seen by Provider: 12/02/24 12:48 History of Present Illness HPI narrative: Patient is a 44-year-old female who presents ER with reports of sore throat. She has had treatment for the last 2 months including multiple rounds of antibiotics as well as steroids. Chart review shows most recent steroids were prescribed on 11/22/2024 but patient reports she has not had any since 11/21/2024. She had an elevated white blood cell count on outpatient lab work and was referred to the ER for further evaluation. She reports she was seen by an ear nose and throat physician and she apparently has a spot on 1 of her vocal cords. She is scheduled to have an outpatient CT and possibly biopsy. She has had negative strep test. No chest pain or pressure. No productive cough. She does have a hoarse voice. Related Data Home Medications ?Medication ?Instructions ?Recorded ?Confirmed ?Last Taken ?Type polyethylene glycol 3350 17 17 g PO DAILY PRN 05/20/24 12/02/24 Unknown History gram/dose oral powder (Miralax) Allergies Allergy/AdvReac Type Severity Reaction Status Date / Time No Known Allergies Allergy Verified 11/25/24 08:34 Review of Systems Review of Systems: All systems reviewed & are unremarkable except as noted in HPI and below Constitutional: Constitutional: Reports no additional constitutional complaints ENT: Reports system reviewed and no additional complaints, except as documented Cardiovascular: Cardiovascular: Reports no additional cardiovascular complaints Respiratory: Respiratory: Reports no additional respiratory complaints Gastrointestinal: Gastrointestinal: Reports no additional gastrointestinal complaints [facility] Past Medical History Medical History Right rib fracture Cutaneous abscess of groin Right clavicle fracture delivery delivered x3 Surgical History Surgical History Hx of neck surgery 2002 History of partial hysterectomy 2016 (or 2017) Family History Family History Father Diabetes mellitus Hypertension Heart disease Mother Melanoma Social History Social History Smoking packs per day: 1 Smoking cigarettes per day: 20.0 Years smoked: 15 Smoking pack-years: 15.00 Smoking status: Current every day smoker Tobacco type: cigarettes Second hand tobacco smoke exposure: Yes Alcohol intake: current Alcohol use details: Wine socially Substance use: never Substance use type: does not use Living arrangements: with family Occupation/Education: occupation Gender identity (if verbalized by the patient): Female Sexual Orientation (if Verbalized by the Patient): Straight or Heterosexual Spiritual care concerns: No Agree to blood products: Yes Exam Narrative: GENERAL: Well-appearing, well-nourished, and in no acute distress. HEAD: Normocephalic, atraumatic. EYES: PERRL and EOMI. ENT: Mucous membranes moist. Mild pharyngeal erythema without significant tonsillar hypertrophy. There is a small white spot on the right tonsil. Uvula midline and nonedematous. Tolerating oral secretions without issue. CHEST: Clear to auscultation. No respiratory distress. No stridor. HEART: Regular rate and rhythm. Normal peripheral pulses. ABDOMEN: Soft, nontender, nondistended. EXTREMITIES: Normal range of motion. No edema. SKIN: Warm, dry, no rash. NEURO: Alert and oriented x3. PSYCH: Normal mood and affect. Course Course Emergency Course: Patient informed of imaging results. Faulk test also negative. Discuss that I feel the white blood cell count is likely elevated from prednisone use, she is unsure when she quit taking medicine but no she has been off for few days. Offered viscous lidocaine for the discomfort in the back of her throat. Before can be administered patient walked out of the hospital with her . She is upset that she does not have a formal diagnosis. I discussed with her I do not feel comfortable giving continued antibiotics arbitrarily when she had already been on multiple rounds without improvement. CT imaging shows no swelling or abnormality but we discussed this does not mean that there isn't something located on the vocal cord causing dysfunction and discomfort. Vital Signs Vital signs: Vital Signs Temperature 98 F 12/02/24 12:00 Pulse Rate 84 12/02/24 12:00 Respiratory Rate 17 12/02/24 12:00 Blood Pressure 156/99 H 12/02/24 12:00 Pulse Oximetry 99 12/02/24 12:00 Oxygen Delivery Room Air 12/02/24 12:00 Temperature 98 F 12/02/24 12:00 Pulse Rate 68 12/02/24 13:34 Respiratory Rate 20 12/02/24 13:34 Blood Pressure 156/99 H 12/02/24 12:00 Pulse Oximetry 100 12/02/24 13:34 Oxygen Delivery Room Air 12/02/24 12:00 Medical Decision Making Vital Signs Vital Signs: Vital Signs Temperature 98 F 12/02/24 12:00 Pulse Rate 84 12/02/24 12:00 Respiratory Rate 17 12/02/24 12:00 Blood Pressure 156/99 H 12/02/24 12:00 Pulse Oximetry 99 12/02/24 12:00 Oxygen Delivery Room Air 12/02/24 12:00 Temperature 98 F 12/02/24 12:00 Pulse Rate 68 12/02/24 13:34 Respiratory Rate 20 12/02/24 13:34 Blood Pressure 156/99 H 12/02/24 12:00 Pulse Oximetry 100 12/02/24 13:34 Oxygen Delivery Room Air 12/02/24 12:00 Lab Data Labs: Lab Results 12/02/24 Range/Units 13:35 Monoscreen Negative (Negative) Imaging Data Radiologist's impression: ITS Impressions Soft Tissue Neck CT 12/02/24 15:51 IMPRESSION: 1. No abnormal masses or pathologically enlarged lymphadenopathy in neck or visualized portions of the head and upper chest. Specifically the epiglottis, vocal cords and intervening aryepiglottic folds appear normal and symmetric. 2. Mild emphysema. Discharge Plan Discharge Clinical Impression: Acute sore throat Patient Disposition: Home Condition: Stable Patient Language: Icelandic Prescriptions: No Action brimonidine 0.33 % gel with pump 1 applic topical DAILY Qty: 30 2RF triamcinolone acetonide 0.1 % cream 1 applic topical BID PRN (Reason: rash) Qty: 80 0RF montelukast 10 mg tablet 10 mg PO QHS PRN (Reason: allergies) Qty: 90 0RF polyethylene glycol 3350 [Miralax] 17 gram/dose powder 17 g PO DAILY PRN fluticasone propionate [Flonase Allergy Relief] 50 mcg/actuation spray,suspension 2 spray intranasal BID Qty: 16 2RF Rx Instructions: administer into each nostril alprazolam 1 mg tablet 1 mg PO QHS PRN (Reason: anxiety) Qty: 30 2RF acetaminophen-codeine 300-30 mg tablet 1 tablet PO Q8H PRN (Reason: cough) Qty: 20 0RF lisinopril 40 mg tablet 40 mg PO DAILY Qty: 30 5RF budesonide-formoterol [Symbicort] 160-4.5 mcg/actuation HFA aerosol inhaler 2 puff inhalation Q12H Qty: 10.2 1RF sertraline 100 mg tablet 100 mg PO DAILY Qty: 90 0RF albuterol sulfate 90 mcg/actuation HFA aerosol inhaler 2 inh inhalation Q4H PRN (Reason: shortness of breath or wheezing) Qty: 8.5 3RF Spiriva Respimat 1.25 mcg/actuation mist 2 puff inhalation DAILY Qty: 4 0RF levocetirizine 5 mg tablet 5 mg PO DAILY PRN (Reason: allergy symptoms) Qty: 30 0RF promethazine-DM 6.25-15 mg/5 mL syrup 5 ml PO Q4-6H PRN (Reason: cough) Qty: 473 0RF Airsupra 90-80 mcg/actuation HFA aerosol inhaler 2 inh inhalation QID PRN (Reason: shortness of breath) Qty: 10.7 0RF Rx Instructions: as a single dose; may repeat up to 6 doses per day (12 inhalations) benzonatate 200 mg capsule 200 mg PO TID PRN (Reason: cough) Qty: 30 0RF fluticasone propionate [Allergy Relief (fluticasone)] 50 mcg/actuation spray,suspension 1 spray intranasal BID PRN (Reason: allergy symptoms) Qty: 16 2RF Rx Instructions: administer into each nostril Follow-up/Referrals: Rachel Haynes APRN [Primary Care Provider, Family Practice]
--- OUTSIDE RECORDS SUMMARY | 2024-12-02 13:41 | XMS_ITS | Clinical Summary ---
Author Organization [facility] Address [address] [place] [address] Care Team Providers Care Senior Office Support Assistant Sosa Name Role Phone Darrius Hong MD Primary [...] on file Legal Sex Female 3:14 AM TELEMARKETER Gender Identity Not on file Sexual Orientation [...] Read Routine (OP Routine) 12/25/2022 9:57 AM TELEMARKETER Screening mammogram, encounter for from Last 3 Months or Most Recently Relevant to Health Maintenance Results * (ABNORMAL) Screening Mammogram Bilateral W Pancho (12/25/2022 9:57 AM TELEMARKETER) Anatomical Region Laterality Modality Breast Bilateral Mammography Narrative 12/25/2022 12:50 PM TELEMARKETER Examination: Screening Mammogram Bilateral W Pancho: 12/25/22 [...] Most Recently Relevant to Health Maintenance Insurance [employer]ICE [employer] ACCESS CHOICE Care Teams Senior Office Support Assistant Sosa Relationship Specialty Start Date End Date Darrius Hong MD PCP - General Family Medicine 12/12/22
--- OUTSIDE RECORDS SUMMARY | 2024-12-02 13:41 | XMS_ITS | Clinical Summary ---
Author Organization [facility] Address [address] [address] Care Team Providers Care Coil Winder Name Role Phone Bryan Schrader MD Unavailable [phone] Darrius Hong MD Primary Care Provider + Source Comments [facility],non-owned Affiliates and Associated Physician Practices is amultiple site organization consisting of ambulatory clinics and hospital sitesin [place], [place], [place] and [place]. This disclosure is being madepursuant to the Care Everywhere program and may not contain all information available regarding this patient. Last updated 17.[facility] Allergies No known active allergies Medications * [...] AM CDT Legal Sex Female 4:32 AM LINE CLEARANCE FOREMAN Gender Identity Female 09/10/2023 10:15 AM CDT Sexual Orientation Straight 09/10/2023 10 :15 AM CDT Last Filed Vital Signs Vital Sign Reading Time Taken Comments Blood Pressure 134/64 12/22/2022 9:54 AM LINE CLEARANCE FOREMAN Pulse 73 03/21/2022 6:30 AM LINE CLEARANCE FOREMAN Temperature 36.4 C (97.6 F) 03/21/2022 9:37 AM LINE CLEARANCE FOREMAN Respiratory Rate 16 03/21/2022 9:37 AM LINE CLEARANCE FOREMAN Oxygen Saturation 100% 03/21/2022 9:37 AM LINE CLEARANCE FOREMAN Inhaled Oxygen Concentration - - Weight 69.9 kg (154 lb) 12/22/2022 9:54 AM LINE CLEARANCE FOREMAN Height 165.1 cm (5' 5) 12/22/2022 9:54 AM LINE CLEARANCE FOREMAN Body Mass Index 25.63 12/22/2022 9:54 AM LINE CLEARANCE FOREMAN Plan of Treatment Health Maintenance Due Date [...] tobacco Lifestyle Not on track(01/09/20 10:29 AM LINE CLEARANCE FOREMAN) No Katerina Garcias MA Procedures Procedure Name Priority Date/Time Associated Diagnosis Comments MAMMOGRAM 02/02/2023 COMPREHENSIVE METABOLIC PANEL STAT 03/15/2022 9:14 AM LINE CLEARANCE FOREMAN LIPID PROFILE AM Draw 08/20/2018 5:19 AM CDT from Last 3 Months or Most Recently Relevant to Health Maintenance Results * MAMMOGRAM (02/02/2023) Anatomical Region Laterality Modality Other 02/02/2023 Narrative 02/02/2023 Ordered by an unspecified provider. us Scanned Document SCANNING ONLY Final Result * (ABNORMAL) COMPREHENSIVE METABOLIC PANEL (03/15/2022 9:14 AM LINE CLEARANCE FOREMAN) Glucose 98 70 - 105 mg/dL 03/15/2022 9:54 AM LINE CLEARANCE FOREMAN [facility] Sodium 134(L) 136 - 145 mmol/L 03/15/2022 9:54 AM LINE CLEARANCE FOREMAN [facility] Potassium 4.4 3.5 - 5.1 mmol/L 03/15/2022 9:54 AM [facility] Chloride 102 98 - 107 mmol/L 03/15/2022 9:54 AM [facility] CO2 22(L) 23 - 31 mmol/L 03/15/2022 9:54 AM [facility] Calcium 9.4 8.4 - 10.4 mg/dL 03/15/2022 9:54 AM [facility] Anion Gap 10 8 - 18 mmol/L 03/15/2022 9:54 AM [facility] BUN 11 7 - 18.7 mg/dL 03/15/2022 9:54 AM [facility] Creatinine 0.78 0.57 - 1.11 mg/dL 03/15/2022 9:54 AM [facility] Alkaline Phosphatase 73 40 - 150 U/L 03/15/2022 9:54 AM [facility] ALT 51 0 - 61 U/L 03/15/2022 9:54 AM [facility] AST 24 5 - 34 U/L 03/15/2022 9:54 AM [facility] Protein Total 7.3 6.4 - 8.3 gm/dL 03/15/2022 9:54 AM [facility] Albumin 4.2 3.5 - 5.2 gm/dL 03/15/2022 9:54 AM [facility] Bilirubin Total 0.4 0.2 - 1.2 mg/dL 03/15/2022 9:54 AM [facility] eGFR by CKD-EPI >90 >=90 mL/min/1.7 3 m2 03/15/2022 9:54 AM [facility] Blood BLOOD SPECIMEN / Unknown Venipuncture / Unknown 03/15/2022 9:14 AM LINE CLEARANCE FOREMAN 03/15/2022 9:32 AM [facility] us Paulina Mustafa MD LAB - CHEMISTRY ORDERABLES Sushma andersen Result [facility] [address] [place] [id number] * LIPID PROFILE (08/20/2018 5:19 AM CDT) Cholesterol 153 <200 mg/dL 08/20/2018 6:06 AM CDT [facility] Triglycerides 128 <150 mg/dL 08/20/2018 6:06 AM CDT [facility] HDL Cholesterol 75 >40 mg/dL 9 6:06 AM CDT [facility] LDL Calculated 52 <130 mg/dL 08/20/2018 6:06 AM CDT [facility] VLDL Calculated 26 <=30 mg/dL 9 6:06 AM CDT [facility] Chol HDL Ratio 2.0 <4.5 08/20/2018 6:06 AM CDT [facility] LDL/HDL Ratio 0.7 <5.0 08/20/2018 6:06 AM CDT [facility] Blood BLOOD SPECIMEN / Unknown Venipuncture / Unknown 08/20/2018 5:19 AM CDT 08/20/2018 5:33 AM CDT Yeni Harrison [employer]RARIAN LAB - CHEMISTRY ORDERAB LES Final Result Performing Organization Address City/State/[facility] Co de Phone Number [facility] [address] [place] [address] from Last 3 Months or Most Recently Relevant to Health Maintenance Insurance [employer] [facility] Advance Directives * Full Code (Latest Code Status on File) Date Activated Date Inactivated Comments 08/19/2018 10:45 AM 08/21/2018 3:28 PM * Full Code Date Activated Date Inactivated Comments 06/11/2016 2:44 PM 06/12/2016 2:59 PM * Full Code Date Activated Date Inactivated Comments 06/11/2016 9:02 AM 06/11/2016 2:44 PM Care Teams Coil Winder Relationship Specialty Start Date End Date Darrius Hong MD [address] [place] [address] PCP - General Family Medicine 03/21/22 Bryan Schrader MD [address] [place] [id number] Software Support Engineer Obstetrics and Gynecology 12/04/15
[2024-12-02 14:20] LABS: Negative Monotest Control Negative (Negative); Positive Monotest Control Positive (Positive)
== END 2024-12-02 16:36 | disposition home or self-care (01) ==
PROVIDERS: Emergency Provider Emergency Medicine; PCP Nurse Practitioner Family
DX: J02.9 Acute pharyngitis, unspecified (principal); F17.210 Nicotine dependence, cigarettes, uncomplicated
CPT/HCPCS: 36415; 70491; 86308; 99284; Q9967

== ENCOUNTER 2024-12-16 09:25 | Outpatient (CLI) | payer BC, SELFPAY ==
--- OUTSIDE RECORDS SUMMARY | 2024-12-15 10:00 | XMS_ITS | Encounter Summary ---
Author Organization [facility] Address [address] [place], [place] [address] [address] Care Team Providers Care Assistant Education Director Name Role Phone Bryan Schrader MD Unavailable [phone] Darrius Hong MD Primary Care Provider + Reason for Referral * Radiology Services (Routine) - Open Specialty Diagnoses / Procedures Referred By Joseph gonsalez Referred To Contact Diagnoses Breast cancer screening by mammogram Fibrocystic breast changes, unspecified laterality Procedures Mammo Bilat Diagnostic Bryan Schrader MD [address] [place] [address] [place] [phone] Phone: tel: fax: [facility] Referral ID Status Reason Start Date Expiration Date Visits Re quested Visits Authorized [id number] Open 12/15/2024 12/15/2025 1 1 Reason for Visit * Reason Comments Well Women Exam Encounter Details Date Type Department Care Team (Late st Contact Info) Description 12/15/2024 10:00 AM CDT Office Visit [facility] - URGENT CARE TECHNICIAN [address] [place] [address], [address] [place] [phone] Bryan Schrader MD [address] [place] [address] [place] [phone] Well woman exam with routine gynecological exam (Primary Dx); Breast cancer screening by mammogram; Fibrocystic breast changes, unspecified laterality; Chronic interstitial cystitis; Chronic urinary bladder pain; Genital herpes simplex, unspecified site; Vulvar abscess Social History Tobacco Use Types Packs/Day Years [...] AM CDT Legal Sex Female 4:32 AM MOLDER MEAT Gender Identity Female 09/10/2023 10:15 AM CDT Sexual Orientation Straight 09/10/2023 10 :15 AM CDT documented as of this encounter Last Filed Vital Signs Vital Sign Reading Time Taken Comments Blood Pressure 120/76 12/15/2024 10:06 AM CDT Pulse - - Temperature - - Respiratory Rate - - Oxygen Saturation - - Inhaled Oxygen Concentration - - Weight 72.6 kg (160 lb) 12/15/2024 10:06 AM CDT Height 162.6 cm (5' 4) 12/15/2024 10:06 AM CDT Body Mass Index 27.46 12/15/2024 10:06 AM CDT documented in this encounter Functional Status * Is person deaf or have serious hearing difficulty? Answer Date of Assessment Author No 03/21/2022 8:45 AM Christie De Paz RN * Is person blind or have serious difficulty seeing? Answer Date of Assessment Author No 03/21/2022 8:45 AM Christie De Paz RN * Does person have serious difficulty walking/climbing stairs? Answer Date of Assessment Author No 03/21/2022 8:45 AM Christie De Paz RN * Does person have difficulty dressing/bathing? Answer Date of Assessment Author No 03/21/2022 8:45 AM Christie De Paz RN * Does person have difficulty doing errands alone? Answer Date of Assessment Author No 03/21/2022 8:45 AM Christie De Paz RN documented as of this encounter Mental Status * Does person have difficulty concentrating/remembering/making decisions? Answer Entry Date Author No 03/21/2022 8:45 AM Christie De Paz RN documented in this encounter Progress Notes * Bryan Schrader MD - 12/15/2024 10:07 AM CDT [facility] Urogynecology Bryan Schrader MD Board-Certified in Urogynecology and Reconstructive Pelvic Surgery, Stripper Machine Operator WELL-WOMAN [facility]&P Ortiz Disla is a 44 year old female, Patient's last menstrual period was 06/11/2005., here for a well woman exam. Patient is s/p hysterectomy . Last mammogram: fibrocystic changes She has had augmentation since then She has a boil on the right inner thigh that has been present for several weeks Intermittent IC symptoms Needs refill of Valtrex Menses: hysterectomy . Other pertinent history: Medications[1] Allergies[2] Past Medical History[3] Past Surgical History[4] Family History[5] Social History Socioeconomic History Marital status: Spouse name: Not on file Number of children: Not on file Years of education: Not on file Highest education level: Not on file Occupational History Not on file Tobacco Use Smoking status: Every Day Current packs/day: 1.00 Average packs/day: 1 pack/day for 8.0 years (8.0 ttl pk-yrs) Types: Cigarettes Smokeless tobacco: Never Vaping Use Vaping status: Former Substance and Sexual Activity Alcohol use: Yes Alcohol/week: 0.8 standard drinks of alcohol Types: 1 Alcoholic drink(s) per week Comment: social Drug use: No Sexual activity: Yes Other Topics Concern Service Not Asked Blood Transfusions No Caffeine Concern Not Asked Occupational Exposure Not Asked Hobby Hazards Not Asked Sleep Concern Not Asked Stress Concern Not Asked Weight Concern Not Asked Special Diet Not Asked Back Care Not Asked Exercise Not Asked Bike Helmet Not Asked Seat Belt Yes Self-Exams Not Asked Social History Narrative VICTIM OF VIOLENCE: no WORKING SMOKE DETECTORS:YES USE OF CONTRACEPTIVES:NO USE OF FIREARMS: NO Social Drivers of Health Financial Resource Strain: Not on file Food Insecurity: Not on file Transportation Needs: Not on file Stress: Not on file Housing Stability: Not on file OB History 3 Para 3 Term AB Living 4 SAB IAB Ectopic Multiple 1 Live Births 4 Review of Systems Pertinent items are noted in the HPI. All other systems were reviewed and are negative EXAMINATION BP 120/76 Ht 1.626 m (5' 4) Wt 72.6 kg (160 lb) General Appearance: alert, cooperative, no distress Breasts: bilateral implants, nontender, no masses or discharge Abdomen: soft without mass, non-tender Pelvic: External genitalia: normal general appearance except for 3 cm raised abscess of right groin, no drainage Urinary system: urethral meatus normal Vaginal: normal mucosa without prolapse or lesions, normal without tenderness, induration or masses, and normal rugae Cervix: absent Adnexa: non palpable Uterus: absent . ASSESSMENT Encounter Diagnoses Name Primary? Well woman exam with routine gynecological exam Yes Breast cancer screening by mammogram Fibrocystic breast changes, unspecified laterality Chronic interstitial cystitis Chronic urinary bladder pain Genital herpes simplex, unspecified site Vulvar abscess She is doing conservative mgt of the IC for now She cannot afford to come in for treatments, prefers to continue dietary management The abscess requires antibiotics and application of heat Refilling Valtrex Mamm is due PLAN See orders, medications, patient instructions. and Breast self-exam technique reviewed. Patient encouraged to perform monthly. Orders Placed This Encounter Mammo Bilat Diagnostic Standing Status: Future Expiration Date: 12/15/2025 Reason for Exam: screen Release to patient: Immediate valACYclovir (Valtrex) 1 GM tablet Sig: Take 0.5 (one-half) tablet by mouth 2 times daily Due for annual wellness exam Dispense: 5 tablet Refill: 5 sulfamethoxazole-trimethoprim (Bactrim DS; Septra DS) 800-160 MG tablet Sig: Take 1 (one) tablet by mouth 2 times daily for 7 days Dispense: 14 tablet Refill: 0 ALso hot soaks/sprays of the abscess 10 min BID until resolved F/U if not improved in a week She will schedule the mammogram F/u as needed for the IC F/U 1 yr [1] Current Outpatient Medications Medication Sig Dispense Refill hyoscyamine (Levsin SL) 0.125 MG sublingual tablet Dissolve 1 (one) tablet under the tongue every 4hours as needed for Spasms 21 tablet 0 lisinopril (PRINIVIL; ZESTRIL) 20 MG tablet Take 2 (two) tablets by mouth once daily meloxicam (Mobic) 15 MG tablet Take 1 (one) tablet by mouth once daily 30 tablet 0 PROAIR HFA 108 (90 Base) MCG/ACT inhaler INHALE 2 PUFFS BY MOUTH EVERY 6 HOURS NEEDED 8.5 g 0 sulfamethoxazole-trimethoprim (Bactrim DS; Septra DS) 800-160 MG tablet Take 1 (one) tablet by mouth 2 times daily for 7 days 14 tablet 0 valACYclovir (Valtrex) 1 GM tablet Take 0.5 (one-half) tablet by mouth 2 times daily Due for annualwellness exam 5 tablet 5 No current facility-administered medications for this visit. [2] No Known Allergies [3] Past Medical History: Diagnosis Date Acute bronchitis Asthma (HCC) Chronic interstitial cystitis Chronic obstructive pulmonary disease (COPD) (HCC) Chronic urinary bladder pain Condyloma acuminata Depression with anxiety Essential hypertension Genital herpes Panic attack [4] Past Surgical History: Procedure Laterality Date Bilateral Tubal Ligation (BTL) 2004 Breast Augmentation Bilateral Cervical Diskectomy 2009 Cervical LEEP 1998 Section 3 c-sections CYSTOSCOPY N/A 03/21/2022 N/A; CYSTOSCOPY WITH HYDRODISTENSION BLADDER Hysterectomy Bilateral 06/11 HYSTERECTOMY TOTAL LAP W TUBE/OVARY Bilateral 06/11/2016 Bilateral; TOTAL LAPAROSCOPIC HYSTERECTOMY SALPINGECTOMY URGENT CARE TECHNICIAN PROCEDURE/SURGERY 2006 Khalif [5] Family History Problem Relation Name Age of Onset Heart Failure Father Diabetes Father Hypercholesterolemia Father Hypertension Father Arthritis - Rheumatoid Maternal Grandmother Stroke Maternal Grandfather Heart Disease Other FATHER Breast Cancer at or under age 50 Paternal Grandmother documented in this encounter Plan of Treatment Scheduled Orders Name Type Priority Associated Diagnoses Orde r Schedule Mammo Bilat Diagnostic Imaging Routine Breast cancer screening by mammogram Fibrocystic breast changes, unspecified laterality 1 Occurrences starting 12/15/2024 until 12/15/2025 documented as of this encounter Goals Goal Patient Goal Type Associated Problems Recent Progress Patient-Stated? Author Quit smoking / using tobacco Lifestyle Not on track(01/09/20 18 10:29 AM MOLDER MEAT) No Katerina Garcias MA documented as of this encounter Visit Diagnoses Diagnosis Well woman exam with routine gynecological exam- Primary Routine gynecological examination Breast cancer screening by mammogram Fibrocystic breast changes, unspecified laterality Chronic interstitial cystitis Chronic urinary bladder pain Genital herpes simplex, unspecified site Vulvar abscess Other abscess of vulva documented in this encounter Care Teams Assistant Education Director Relationship Specialty Start Date End Date Darrius Hong MD [address] [address] PCP - General Family Medicine 03/21/22 Bryan Schrader MD [address] [phone] Ships Equipment Engineer Obstetrics and Gynecology 12/04/15 documented as of this encounter
--- OUTSIDE RECORDS SUMMARY | 2024-12-16 09:52 | XMS_ITS | Clinical Summary ---
Author Organization [facility] Address [address] [place] [address] Care Team Providers Care Mobile Marketing Specialist Name Role Phone Darrius Hong MD Primary [...] on file Legal Sex Female 3:14 AM PALM GATHERER Gender Identity Not on file Sexual Orientation [...] Read Routine (OP Routine) 12/25/2022 9:57 AM PALM GATHERER Screening mammogram, encounter for from Last 3 Months or Most Recently Relevant to Health Maintenance Results * (ABNORMAL) Screening Mammogram Bilateral W Pancho (12/25/2022 9:57 AM PALM GATHERER) Anatomical Region Laterality Modality Breast Bilateral Mammography Narrative 12/25/2022 12:50 PM PALM GATHERER Examination: Screening Mammogram Bilateral W Pancho: 12/25/22 [...] Most Recently Relevant to Health Maintenance Insurance [employer] ACCESS CHOICE [employer] CHOICE [employer] ACCESS CHOICE Care Teams Mobile Marketing Specialist Relationship Specialty Start Date End Date Darrius Hong MD PCP - General Family Medicine 12/12/22
--- OUTSIDE RECORDS SUMMARY | 2024-12-16 09:52 | XMS_ITS | Clinical Summary ---
Author Organization [facility] Address [facility] [facility] [place] [address] Care Team Providers Care Marketing Liaison Name Role Phone Bryan Schrader MD Unavailable [phone] Darrius Hong MD Primary Care Provider + Source Comments [facility],non-owned Affiliates and Associated Physician Practices is amultiple site organization consisting of ambulatory clinics and hospital sitesin [place], [place], [place] and [place]. This disclosure is being madepursuant to the Care Everywhere program and may not contain all information available regarding this patient. Last updated 17.[facility] Allergies No known active allergies Medications * [...] 6 HOURS NEEDED 8.5 g 2 Active meloxicam (Mobic) 15 MG tabletIndication s:Pelvic pain in female,Chronic bladder pain,Chronic interstitial cystitis Take 1 (one) tablet by mouth once daily 30 tablet 3 Active hyoscyamine (Levsin SL) 0.125 MG sublingual tablet Dissolve 1 (one) tablet under the tongue every 4 hours as needed for Spasms 21 tablet 3 Active valACYclovir (Valtrex) 1 GM tabletIndication s:Genital herpes simplex, unspecified site Take 0.5 (one-half) tablet by mouth 2 times daily Due for annual wellness exam 5 tablet 5 5 Active sulfamethoxazole -trimethoprim (Bactrim DS; Septra DS) 800-160 MG tabletIndication s:Vulvar abscess Take 1 (one) tablet by mouth 2 times daily for 7 days 14 tablet 5 12/23/19 25 Active valACYclovir (Valtrex) 1 GM tabletIndication s:Genital herpes simplex, unspecified site Take 0.5 (one-half) tablet by mouth 2 times daily Due for annual wellness exam 5 tablet 5 2 12/16/19 Discontinu ed(Reorder ) phenazopyridine (Pyridium) 200 MG tabletIndication s:Chronic bladder pain Take 1 (one) tablet by mouth 3 times daily as needed 90 tablet 3 3 12/16/19 Discontinu ed(List Clean-Up) gabapentin (Neurontin) 100 MG capsuleIndicatio ns:Chronic interstitial cystitis,Chronic bladder pain Take 3 (three) capsules by mouth 2 times daily 180 capsule 3 3 12/16/19 Discontinu ed(List Clean-Up) Active Problems Problem Noted Date Diagnosed Date [...] Occult Blood (Stool Cards): Pap Smear:2008 Mammogram: Encounters Date Type Department Care Team Description 12/15/2024 10:00 AM CDT Office Visit [facility] Medical [facility] - AERIAL HURRICANE HUNTER [address] [place] [address], [address] [place] [phone] Bryan Schrader MD Well woman exam with routine gynecological exam (Primary Dx); Breast cancer screening by mammogram; Fibrocystic breast changes, unspecified laterality; Chronic interstitial cystitis; Chronic urinary bladder pain; Genital herpes simplex, unspecified site; Vulvar abscess from Last 3 Months Immunizations Immunization Administration Dates Next Due HEP [...] AM CDT Legal Sex Female 4:32 AM BUS AIDE Gender Identity Female 09/10/2023 10:15 AM CDT Sexual Orientation Straight 09/10/2023 10 :15 AM CDT Last Filed Vital Signs Vital Sign Reading Time Taken Comments Blood Pressure 120/76 12/15/2024 10:06 AM CDT Pulse 73 03/21/2022 6:30 AM BUS AIDE Temperature 36.4 C (97.6 F) 03/21/2022 9:37 AM BUS AIDE Respiratory Rate 16 03/21/2022 9:37 AM BUS AIDE Oxygen Saturation 100% 03/21/2022 9:37 AM BUS AIDE Inhaled Oxygen Concentration - - Weight 72.6 kg (160 lb) 12/15/2024 10:06 AM CDT Height 162.6 cm (5' 4) 12/15/2024 10:06 AM CDT Body Mass Index 27.46 12/15/2024 10:06 AM CDT Plan of Treatment Health Maintenance Due Date Last Done Comments HIV SCREENING 1996 HEPATITIS C SCREENING 07/30/1999 DTAP/TDAP/TD VACCINES (1 - Tdap) 2000 HEPATITIS B VACCINE (1 of 3 - 19+ 3-dose series) 2000 PNEUMOCOCCAL VACCINE (1 of 2 - PCV) 2000 LIPID TESTING 08/21/2023 08/20/2018 COVID-19 VACCINE (1 - season) 2024 INFLUENZA VACCINE (#1) 2024 5, 12/29/2013, 01/01/2012 MAMMOGRAM 02/02/2025 02/02/2023, 01/16, 12/25/2022, Additional history exists SCREENING FOR DIABETES 03/15/2025 3, 08/20/2018, 08/19/2018, Additional history exists ZOSTER VACCINE (1 of 2) 08/04/2031 HIB VACCINE Aged Out No longer eligi ble based on patient's age to complete this topic HPV VACCINE Discontinued MENINGOCOCCAL (Group B) VACCINE SHARED DECISION-MAKING Aged Out No longer eligible based on patient's age to complete this topic MENINGOCOCCAL GROUPS A/C/Y/W VACCINE Aged Out No longer eligible based on patient's age to complete this topic Goals Goal Patient Goal Type Associated Problems Recent Progress Patient-Stated? Author Quit smoking / using tobacco Lifestyle Not on track(01/09/20 10:29 AM BUS AIDE) No Katerina Garcias MA Procedures Procedure Name Priority Date/Time Associated Diagnosis Comments MAMMOGRAM 02/02/2023 COMPREHENSIVE METABOLIC PANEL STAT 03/15/2022 9:14 AM BUS AIDE LIPID PROFILE AM Draw 08/20/2018 5:19 AM CDT from Last 3 Months or Most Recently Relevant to Health Maintenance Results * MAMMOGRAM (02/02/2023) Anatomical Region Laterality Modality Other 02/02/2023 Narrative 02/02/2023 Ordered by an unspecified provider. us Scanned Document SCANNING ONLY Final Result * (ABNORMAL) COMPREHENSIVE METABOLIC PANEL (03/15/2022 9:14 AM BUS AIDE) Glucose 98 70 - 105 mg/dL 03/15/2022 9:54 AM [facility] Sodium 134(L) 136 - 145 mmol/L 03/15/2022 9:54 AM [facility] Potassium 4.4 3.5 - 5.1 mmol/L [...] Unknown Venipuncture / Unknown 03/15/2022 9:14 AM BUS AIDE 03/15/2022 9:32 AM BUS AIDE Paulina Mustafa MD LAB - CHEMISTRY ORDERABLES Sushma l Result Performing Organization Address City/State/[facility] Co de Phone Number [facility] [address] [place] [address] * LIPID PROFILE (08/20/2018 5:19 AM CDT) [facility] Cholesterol 153 <200 mg/dL 08/20/2018 6:06 AM CDT [facility] Triglycerides 128 <150 mg/dL 08/20/2018 6:06 AM CDT [facility] HDL Cholesterol 75 >40 mg/dL 9 6:06 AM CDT [facility] LDL Calculated 52 <130 mg/dL 08/20/2018 6:06 AM CDT [facility] VLDL Calculated 26 <=30 mg/dL 9 6:06 AM CDT [facility] Chol HDL Ratio 2.0 <4.5 08/20/2018 6:06 AM CDT [facility] LDL/HDL Ratio 0.7 <5.0 08/20/2018 6:06 AM CDT [facility] Blood BLOOD SPECIMEN / Unknown Venipuncture / Unknown 08/20/2018 5:19 AM CDT 08/20/2018 5:33 AM CDT Yeni Harrison HOME FIRE ALARM INSTALLER-STRUCTURAL IRON ERECTOR LAB - CHEMISTRY ORDERAB LES Final Result [facility] [address] [place] [address] from Last 3 Months or Most Recently Relevant to Health Maintenance Insurance [employer] Advance Directives * Full Code (Latest Code Status on File) Date Activated Date Inactivated Comments 08/19/2018 10:45 AM 08/21/2018 3:28 PM * Full Code Date Activated Date Inactivated Comments 06/11/2016 2:44 PM 06/12/2016 2:59 PM * Full Code Date Activated Date Inactivated Comments 06/11/2016 9:02 AM 06/11/2016 2:44 PM Care Teams Marketing Liaison Relationship Specialty Start Date End Date Darrius Hong MD [address] [facility] [address] [place] [address] PCP - General Family Medicine 03/21/22 Bryan Schrader MD [address] [facility] [address] [place] [phone] Reconciliation Manager Obstetrics and Gynecology 12/04/15
[2024-12-16 14:22] LABS: Hematocrit 48.2 % (37.0-47.0); Hemoglobin 15.6 g/dL (12.0-15.0); Immature Granulocyte Percent A 0.8 % (0-0.5); Lymphocytes Absolute Auto 3.07 K/mm3 (0.9-3.2); Mean Corpuscular HGB Conc 32.4 g/dl (32-36); Mean Corpuscular Hemoglobin 31.5 pg (26-34); Mean Corpuscular Volume 97.2 fl (80-100); Nucleated Red Blood Cells Absolute Auto 0.000 K/mm3 (0.0-0.012); Nucleated Red Blood Cells Perc 0.0 % (0.0-0.2); Platelet Count Result 423 k/mm3 (150-375); Red Blood Count 4.96 M/mm3 (4.2-5.4); White Blood Count 11.9 K/mm3 (4.5-10.0)
== END 2024-12-16 09:26 | disposition home or self-care (01) ==
LOC: ANHGOSHLAB 09:25
PROVIDERS: PCP Nurse Practitioner Family; Visit Provider Otolaryngology
DX: J02.9 Acute pharyngitis, unspecified (principal)
CPT/HCPCS: 36415; 85025

== ENCOUNTER 2025-01-23 10:09 | Outpatient (CLI) | payer OTHER, SELFPAY ==
--- NOTE | 2025-01-23 10:15 | ECG_ITS ---
Test Date: 2025-01-23 10:24:11 Measurements Intervals [place] Rate: 76 P: 1 OK: 137 QRS: 38 QRSD: 102 T: 17 QT: 376 QTc: 423 Interpretive Statements SINUS RHYTHM NONSPECIFIC T-WAVE ABNORMALITY- ANT/INF LEADS BORDERLINE ECG No previous ECG available for comparison Electronically Signed On 01-23-2025 11:09:22 ENGINEERING DESIGN SUPERVISOR by Isaac Gagnon D.O.
== END 2025-01-23 10:10 | disposition home or self-care (01) ==
PROVIDERS: Visit Provider Anesthesiology
DX: Z01.818 Encounter for other preprocedural examination (principal); E78.5 Hyperlipidemia, unspecified; Z72.0 Tobacco use; I10 Essential (primary) hypertension; R94.31 Abnormal electrocardiogram [ECG] [EKG]
CPT/HCPCS: 93005